=== PATIENT | female | born 1955 | race Caucasian/White ===

== ENCOUNTER 2018-12-25 10:33 | Outpatient (CLI) | payer OTHER | END 2018-12-25 10:48 | disposition home or self-care (01) | LOC: NUCLEAR 10:33 | DX: M81.0 Age-related osteoporosis without current pathological fracture (principal) ==

== ENCOUNTER → 2018-12-25 | Outpatient (CLI) | payer OTHER | END | disposition home or self-care (01) | LOC: MAMO-SONO 09:15 | DX: Z12.31 Encounter for screening mammogram for malignant neoplasm of breast (principal); Z87.898 Personal history of other specified conditions; N63.11 Unspecified lump in the right breast, upper outer quadrant; N60.11 Diffuse cystic mastopathy of right breast; N60.12 Diffuse cystic mastopathy of left breast ==

== ENCOUNTER 2021-01-24 13:53 | Outpatient (CLI) | payer OTHER | END 2021-01-24 14:02 | disposition home or self-care (01) | LOC: MAMO-SONO 13:53 | PROVIDERS: ATTEND Internal Medicine Cardiovascular Disease | DX: R92.0 Mammographic microcalcification found on diagnostic imaging of breast (principal); Z12.31 Encounter for screening mammogram for malignant neoplasm of breast; N64.89 Other specified disorders of breast ==

== ENCOUNTER 2021-01-24 14:42 | Outpatient (CLI) | payer OTHER | END 2021-01-24 14:49 | disposition home or self-care (01) | LOC: NUCLEAR 14:42 | PROVIDERS: ATTEND Internal Medicine Cardiovascular Disease | DX: M81.0 Age-related osteoporosis without current pathological fracture (principal); E55.9 Vitamin D deficiency, unspecified ==

== ENCOUNTER 2021-05-16 06:42 | Outpatient (CLI) | payer OTHER | END 2021-05-16 06:43 | disposition home or self-care (01) | LOC: LAB 06:42 | PROVIDERS: ATTEND Internal Medicine Cardiovascular Disease | DX: I10 Essential (primary) hypertension (principal); E11.9 Type 2 diabetes mellitus without complications; E03.8 Other specified hypothyroidism; E78.2 Mixed hyperlipidemia; Z12.11 Encounter for screening for malignant neoplasm of colon; E55.9 Vitamin D deficiency, unspecified ==

== ENCOUNTER 2021-09-26 06:32 | Outpatient (CLI) | payer OTHER | END 2021-09-26 06:38 | disposition home or self-care (01) | LOC: LAB 06:32 | PROVIDERS: ATTEND Internal Medicine Cardiovascular Disease | DX: E03.9 Hypothyroidism, unspecified (principal); I10 Essential (primary) hypertension; E78.2 Mixed hyperlipidemia; E11.9 Type 2 diabetes mellitus without complications ==

== ENCOUNTER 2022-02-06 07:29 | Outpatient (CLI) | payer OTHER | END 2022-02-06 07:39 | disposition home or self-care (01) | LOC: LAB 07:29 | PROVIDERS: ATTEND Internal Medicine Cardiovascular Disease | DX: I10 Essential (primary) hypertension (principal); E78.2 Mixed hyperlipidemia ==

== ENCOUNTER → 2022-06-15 07:48 | Outpatient (CLI) | payer OTHER | END | disposition home or self-care (01) | LOC: LAB 07:48 | PROVIDERS: ATTEND Internal Medicine Cardiovascular Disease | DX: I10 Essential (primary) hypertension (principal); E11.9 Type 2 diabetes mellitus without complications; E03.9 Hypothyroidism, unspecified; E78.2 Mixed hyperlipidemia; Z12.11 Encounter for screening for malignant neoplasm of colon; E55.9 Vitamin D deficiency, unspecified ==

== ENCOUNTER 2022-11-12 07:21 | Outpatient (CLI) | payer OTHER | END 2022-11-12 07:24 | disposition home or self-care (01) | LOC: LAB 07:21 | PROVIDERS: ATTEND Internal Medicine Cardiovascular Disease | DX: E03.9 Hypothyroidism, unspecified (principal); E78.2 Mixed hyperlipidemia; I10 Essential (primary) hypertension ==

== ENCOUNTER → 2023-04-01 07:41 | Outpatient (CLI) | payer OTHER ==
[2023-04-01 08:35] LABS: PH,URINE 5.5 (5.0-8.0); URINE APPEARANCE Clear; URINE BILIRRUBIN Negative (NEGATIVE); URINE BLOOD Small; URINE COLOR Yellow; URINE GLUCOSE Negative (NEGATIVE); URINE LEUKOCYTE Small; URINE NITRATE Negative; URINE PROTEIN Negative (NEGATIVE); URINE UROBILINOGEN 0.2 E.U./dl
[2023-04-01 08:39] LABS: URINE BACTERIA 372.9 uL (0.0-1933); URINE EPITHELIAL CELLS 18.3 uL (0.0-38.8); URINE RBC 39.9 uL (0.0-20.8); URINE WBC 22.2 uL (0.0-23.2)
[2023-04-01 08:52] LABS: HEMATOCRIT 39.5 % (36.0-45.00); HEMOGLOBIN 13.1 g/dL (12.0-15.00); MEAN CORPUSCULAR HEMOGLOBIN 28.3 pg (27.00-32.0); MEAN CORPUSCULAR HGB CONC 33.3 g/dl (32.0-36.0); PLATELET COUNT 261 K/uL (150-450); RED BLOOD COUNT 4.65 M/uL (4.00-6.00); RED CELL DISTRIBUTION WIDTH 14.8 % (11.5-14.5)
[2023-04-01 09:24] LABS: CALCIUM 9.9 mg/dL (8.5-10.1); CHOL HDL RATIO 2.1 (0-5.0); CREATININE SERUM 0.76 mg/dL (0.55-1.02); GFR 75.46; POTASSIUM 4.72 mEq/L (3.5-5.1); T4 TOTAL 6.19 UG/DL (4.8-13.9); TSH 2.23 uIU/mL (0.358-3.74)
== END | disposition home or self-care (01) ==
LOC: LAB 07:41
PROVIDERS: ATTEND Internal Medicine Cardiovascular Disease
DX: I10 Essential (primary) hypertension (principal); E11.9 Type 2 diabetes mellitus without complications; E03.9 Hypothyroidism, unspecified; E78.2 Mixed hyperlipidemia; Z88.6 Allergy status to analgesic agent

== ENCOUNTER 2023-08-14 07:48 | Outpatient (CLI) | payer OTHER ==
[2023-08-14 10:05] LABS: PH,URINE 6.5 (5.0-8.0); URINE APPEARANCE Clear; URINE BILIRRUBIN Negative (NEGATIVE); URINE COLOR Yellow; URINE GLUCOSE Negative (NEGATIVE); URINE LEUKOCYTE Trace; URINE NITRATE Negative; URINE PROTEIN Negative (NEGATIVE); URINE UROBILINOGEN 0.2 E.U./dl
[2023-08-14 10:06] LABS: URINE BACTERIA 127.2 uL (0.0-1933); URINE EPITHELIAL CELLS 11.7 uL (0.0-38.8); URINE RBC 37.2 uL (0.0-20.8); URINE WBC 3.3 uL (0.0-23.2)
[2023-08-14 10:18] LABS: URINE BLOOD TRACE
[2023-08-14 10:18] LABS: HEMATOCRIT 39.8 % (36.0-45.00); HEMOGLOBIN 13.7 g/dL (12.0-15.00); MEAN CELL VOLUME 85.6 fL (80.00-100.00); MEAN CORPUSCULAR HEMOGLOBIN 29.3 pg (27.00-32.0); MEAN CORPUSCULAR HGB CONC 34.3 g/dl (32.0-36.0); PLATELET COUNT 253 K/uL (150-450); RED BLOOD COUNT 4.66 M/uL (4.00-6.00); RED CELL DISTRIBUTION WIDTH 14.3 % (11.5-14.5)
[2023-08-14 10:19] LABS: BILIRUBIN TOTAL 0.97 mg/dL (0.3-1.2); CALCIUM 10.1 mg/dL (8.5-10.1); CHOL HDL RATIO 2.1 (0-5.0); CREATININE SERUM 0.77 mg/dL (0.55-1.02); GFR 74.33; GLOBULINA 3.5 G/DL (2.4-3.5); POTASSIUM 5.13 mEq/L (3.5-5.1); T4 TOTAL 7.47 UG/DL (4.8-13.9); TOTAL PROTEIN 7.5 gm/dL (6.4-8.2); TSH 1.52 uIU/mL (0.358-3.74)
[2023-08-14 11:26] LABS: T3 TOTAL 1.08 ng/ml (0.846-2.02); VITAMIN D3 25 HYDROXY 63.01 ng/ml (30-120)
[2023-08-14 13:56] LABS: ob NEGATIVE (NEGATIVE)
== END 2023-08-14 07:49 | disposition home or self-care (01) ==
LOC: LAB 07:48
PROVIDERS: ATTEND Internal Medicine Cardiovascular Disease
DX: E55.9 Vitamin D deficiency, unspecified (principal); I10 Essential (primary) hypertension; E11.9 Type 2 diabetes mellitus without complications; E03.9 Hypothyroidism, unspecified; E78.2 Mixed hyperlipidemia; Z12.11 Encounter for screening for malignant neoplasm of colon

== ENCOUNTER 2023-11-13 08:27 | Outpatient (CLI) | payer OTHER ==
[2023-11-13 09:19] LABS: PH,URINE 5.5 (5.0-8.0); URINE APPEARANCE Clear; URINE BILIRRUBIN Negative (NEGATIVE); URINE BLOOD Moderate; URINE COLOR Dark Yellow; URINE GLUCOSE Negative (NEGATIVE); URINE LEUKOCYTE Small; URINE NITRATE Negative; URINE PROTEIN Negative (NEGATIVE); URINE UROBILINOGEN 0.2 E.U./dl
[2023-11-13 09:24] LABS: URINE BACTERIA 980.2 uL (0.0-1933); URINE RBC 64.2 uL (0.0-20.8); URINE WBC 33.5 uL (0.0-23.2)
[2023-11-13 09:27] LABS: HEMATOCRIT 39.9 % (36.0-45.00); HEMOGLOBIN 13.5 g/dL (12.0-15.00); MEAN CORPUSCULAR HEMOGLOBIN 28.7 pg (27.00-32.0); MEAN CORPUSCULAR HGB CONC 33.8 g/dl (32.0-36.0); PLATELET COUNT 258 K/uL (150-450); RED BLOOD COUNT 4.69 M/uL (4.00-6.00); RED CELL DISTRIBUTION WIDTH 14.6 % (11.5-14.5)
[2023-11-13 09:46] LABS: CHOL HDL RATIO 2.1 (0-5.0); CREATININE SERUM 0.86 mg/dL (0.55-1.02); GFR 65.42; POTASSIUM 4.74 mEq/L (3.5-5.1)
== END 2023-11-13 08:31 | disposition home or self-care (01) ==
LOC: LAB 08:27
PROVIDERS: ATTEND Internal Medicine Cardiovascular Disease
DX: I10 Essential (primary) hypertension (principal); E78.2 Mixed hyperlipidemia

== ENCOUNTER 2024-02-13 07:19 | Outpatient (CLI) | payer OTHER ==
[2024-02-13 08:12] LABS: PH,URINE 5.5 (5.0-8.0); URINE APPEARANCE Turbid; URINE BILIRRUBIN Small (NEGATIVE); URINE BLOOD Small; URINE COLOR Dark Yellow; URINE GLUCOSE Negative (NEGATIVE); URINE KETONE Trace (NEGATIVE); URINE LEUKOCYTE Moderate; URINE NITRATE Negative; URINE PROTEIN 30 (NEGATIVE)
[2024-02-13 08:13] LABS: URINE RBC 53.2 uL (0.0-20.8)
[2024-02-13 08:15] LABS: HEMATOCRIT 39.1 % (36.0-45.00); HEMOGLOBIN 13.2 g/dL (12.0-15.00); MEAN CELL VOLUME 86.7 fL (80.00-100.00); MEAN CORPUSCULAR HEMOGLOBIN 29.3 pg (27.00-32.0); MEAN CORPUSCULAR HGB CONC 33.8 g/dl (32.0-36.0); PLATELET COUNT 258 K/uL (150-450); RED BLOOD COUNT 4.51 M/uL (4.00-6.00); RED CELL DISTRIBUTION WIDTH 14.6 % (11.5-14.5)
[2024-02-13 08:33] LABS: URINE BACTERIA > 9821.5 uL (0.0-1933); URINE CAST 1.37 uL (0.0-1.40); URINE EPITHELIAL CELLS > 201.7 uL (0.0-38.8)
[2024-02-13 08:49] LABS: CALCIUM 9.9 mg/dL (8.5-10.1); CHOL HDL RATIO 2.5 (0-5.0); CREATININE SERUM 0.82 mg/dL (0.55-1.02); GFR 68.92; T4 TOTAL 7.83 UG/DL (4.8-13.9); TSH 2.81 uIU/mL (0.358-3.74)
== END 2024-02-13 07:20 | disposition home or self-care (01) ==
LOC: LAB 07:19
PROVIDERS: ATTEND Internal Medicine Cardiovascular Disease
DX: I10 Essential (primary) hypertension (principal); E11.9 Type 2 diabetes mellitus without complications; E78.2 Mixed hyperlipidemia

== ENCOUNTER 2024-03-10 14:03 | Outpatient (CLI) | payer OTHER | END 2024-03-10 14:06 | disposition home or self-care (01) | LOC: NUCLEAR 14:03 | PROVIDERS: ATTEND Internal Medicine Cardiovascular Disease | DX: M81.0 Age-related osteoporosis without current pathological fracture (principal) ==

== ENCOUNTER 2024-03-10 14:53 | Outpatient (CLI) | payer OTHER | END 2024-03-10 14:56 | disposition home or self-care (01) | LOC: MAMO-SONO 14:53 | PROVIDERS: ATTEND Internal Medicine Cardiovascular Disease | DX: N60.11 Diffuse cystic mastopathy of right breast (principal); N60.12 Diffuse cystic mastopathy of left breast; Z12.31 Encounter for screening mammogram for malignant neoplasm of breast ==

== ENCOUNTER 2024-07-29 07:52 | Outpatient (CLI) | payer OTHER ==
[2024-07-29 08:26] LABS: PH,URINE 5.5 (5.0-8.0); URINE APPEARANCE Cloudy; URINE BILIRRUBIN Negative (NEGATIVE); URINE BLOOD Moderate; URINE COLOR Yellow; URINE GLUCOSE Negative (NEGATIVE); URINE KETONE Trace (NEGATIVE); URINE LEUKOCYTE Moderate; URINE NITRATE Negative; URINE PROTEIN Trace (NEGATIVE); URINE UROBILINOGEN 0.2 E.U./dl
[2024-07-29 08:27] LABS: URINE BACTERIA 3685.3 uL (0.0-1933); URINE EPITHELIAL CELLS 116.4 uL (0.0-38.8); URINE RBC 59.2 uL (0.0-20.8)
[2024-07-29 08:37] LABS: HEMATOCRIT 39.9 % (36.0-45.00); HEMOGLOBIN 13.2 g/dL (12.0-15.00); MEAN CELL VOLUME 85.5 fL (80.00-100.00); MEAN CORPUSCULAR HEMOGLOBIN 28.2 pg (27.00-32.0); PLATELET COUNT 271 K/uL (150-450); RED BLOOD COUNT 4.67 M/uL (4.00-6.00)
[2024-07-29 08:40] LABS: URINE CAST 0.29 uL (0.0-1.40)
[2024-07-29 09:05] LABS: ALBUMIN 3.9 gm/dL (3.4-5.0); BILIRUBIN TOTAL 0.84 mg/dL (0.3-1.2); CHOL HDL RATIO 1.8 (0-5.0); CREATININE SERUM 0.83 mg/dL (0.55-1.02); GFR 67.96; GLOBULINA 3.4 G/DL (2.4-3.5); POTASSIUM 4.53 mEq/L (3.5-5.1); TOTAL PROTEIN 7.3 gm/dL (6.4-8.2)
[2024-07-29 11:06] LABS: ob NEGATIVE (NEGATIVE)
[2024-07-29 14:32] LABS: T3 TOTAL 0.928 ng/ml (0.846-2.02); VITAMIN D3 25 HYDROXY 67.45 ng/ml (30-120)
[2024-07-29 20:13] LABS: T4 TOTAL 7.29 UG/DL (4.8-13.9); TSH 1.93 uIU/mL (0.358-3.74)
== END 2024-07-29 07:57 | disposition home or self-care (01) ==
LOC: LAB 07:52
PROVIDERS: ATTEND Internal Medicine Cardiovascular Disease
DX: I10 Essential (primary) hypertension (principal); E11.9 Type 2 diabetes mellitus without complications; E03.9 Hypothyroidism, unspecified; E78.2 Mixed hyperlipidemia; D64.0 Hereditary sideroblastic anemia; Z12.11 Encounter for screening for malignant neoplasm of colon; E55.9 Vitamin D deficiency, unspecified; M81.0 Age-related osteoporosis without current pathological fracture

== ENCOUNTER 2024-10-29 07:49 | Outpatient (CLI) | payer OTHER ==
[2024-10-29 08:51] LABS: URINE APPEARANCE Cloudy; URINE BILIRRUBIN Small (NEGATIVE); URINE BLOOD Moderate; URINE COLOR Dark Yellow; URINE GLUCOSE Negative (NEGATIVE); URINE KETONE Trace (NEGATIVE); URINE LEUKOCYTE Large; URINE NITRATE Negative; URINE PROTEIN 30 (NEGATIVE)
[2024-10-29 08:53] LABS: BASO % 0.6 % (0.1-1.2); EOS # 0.03 (0.04-0.54); EOS % 0.9 % (0.7-7.0); HEMATOCRIT 39.8 % (34.1-44.9); LYMPH # 1.29 (1.18-3.74); LYMPH % 37.3 % (19.3-53.1); MEAN CORPUSCULAR HEMOGLOBIN 27.5 pg (25.6-32.2); MONO # 0.34 (0.24-0.82); MONO % 9.8 % (4.7-12.5); NEUT # 1.77 (1.56-6.13); NEUT % 51.1 % (34.0-71.1); PLATELET COUNT 243 K/uL (163-369); RED BLOOD COUNT 4.72 M/uL (3.93-5.22); RED CELL DISTRIBUTION WIDTH 14.6 % (11.6-14.4)
[2024-10-29 09:11] LABS: CALCIUM 9.9 mg/dL (8.5-10.1); CHOL HDL RATIO 1.9 (0-5.0); CREATININE SERUM 0.84 mg/dL (0.55-1.02); GFR 67.03; POTASSIUM 4.93 mEq/L (3.5-5.1)
[2024-10-29 09:31] LABS: URINE CRYSTALS FEW /HPF
[2024-10-29 09:32] LABS: URINE BACTERIA MODERATE; URINE RBC 13-18 /HPF; URINE WBC 21-30 /hpf
== END 2024-10-29 07:51 | disposition home or self-care (01) ==
LOC: LAB 07:49
PROVIDERS: ATTEND Internal Medicine Cardiovascular Disease
DX: I10 Essential (primary) hypertension (principal); E11.9 Type 2 diabetes mellitus without complications; E03.9 Hypothyroidism, unspecified; E78.2 Mixed hyperlipidemia

== ENCOUNTER 2025-01-29 07:48 | Outpatient (CLI) | payer OTHER ==
[2025-01-29 08:53] LABS: BASO % 0.6 % (0.1-1.2); EOS # 0.04 (0.04-0.54); EOS % 1.1 % (0.7-7.0); LYMPH # 1.11 (1.18-3.74); LYMPH % 31.2 % (19.3-53.1); MEAN PLATELET VOLUME 9.90 fl (9.4-12.4); MONO # 0.37 (0.24-0.82); MONO % 10.4 % (4.7-12.5); NEUT # 2.01 (1.56-6.13); NEUT % 56.4 % (34.0-71.1); RED CELL DISTRIBUTION WIDTH 15.4 % (11.6-14.4)
[2025-01-29 09:01] LABS: URINE APPEARANCE Clear; URINE BILIRRUBIN Negative (NEGATIVE); URINE BLOOD Small; URINE COLOR Yellow; URINE GLUCOSE Negative (NEGATIVE); URINE KETONE Negative (NEGATIVE); URINE LEUKOCYTE Moderate; URINE NITRATE Negative; URINE PROTEIN Negative (NEGATIVE); URINE UROBILINOGEN 0.2 E.U./dl
[2025-01-29 09:02] LABS: URINE BACTERIA 347.9 uL (0.0-1933); URINE EPITHELIAL CELLS 11.9 uL (0.0-38.8); URINE RBC 3.0 uL (0.0-20.8); URINE WBC 22.4 uL (0.0-23.2)
[2025-01-29 09:15] LABS: URINE CAST 0.43 uL (0.0-1.40)
[2025-01-29 09:48] LABS: BUN CREA RATIO 21.0 (7.0-25.0); CHOL HDL RATIO 2.0 (0-5.0); CREATININE SERUM 0.85 mg/dL (0.55-1.02); GFR 65.93; GLUCOSE FASTING 81.0 mg/dL (65-100); HDL 91.0 mg/dl (40-60); LDL 79.0 mg/dl (0-130); OSMOLALITY SERUM 280.0 MOSM/KG (275-295); T4 TOTAL 5.76 UG/DL (4.8-13.9); TSH 2.26 uIU/mL (0.358-3.74); VLDL 15.0 (0-39)
== END 2025-01-29 07:54 | disposition home or self-care (01) ==
LOC: LAB 07:48
PROVIDERS: ATTEND Internal Medicine Cardiovascular Disease
DX: E03.9 Hypothyroidism, unspecified (principal); I10 Essential (primary) hypertension; E78.2 Mixed hyperlipidemia; R73.03 Prediabetes